=== PATIENT | male | born 1950 | race Caucasian/White ===

== ENCOUNTER → 2018-06-19 | Outpatient (CLI) | payer OTHER ==
[~2018-06-19] VITALS: Ht 177.8 cm; Wt 136.1 kg
[~2018-06-19] MED LIST: AMBIEN 5 MG TABL5 M1 PO; CRESTOR10 MG PO; FLECAINIDE ACET50 M1 PO; METFORMIN HCL500 MG PO; METOPROLOL SUCC50 MG PO; PACERONE 200 M200 MG PO; PRADAXA150 MG PO; PRINIVIL10 MG PO; SYNTHROID150 MCG PO
[2018-06-19 12:23] VITALS: BP 107/74
[2018-06-19 12:25] LABS: HEMATOCRIT 43.1 % (42.0-52.0); HEMOGLOBIN 14.6 gm/dL (14.0-18.0); MCH 30.2 pg (26.0-34.0); MCHC 33.8 g/dL (28.0-37.0); MCV 89.3 fL (80.0-100.0); RBC 4.83 mil/uL (4.50-6.00); RDW 13.6 % (10.5-14.5); WBC 6.2 thou/uL (4.0-11.0)
[2018-06-19 12:30] LABS: CALCIUM 9.4 mg/dL (8.5-10.1); CREATININE 1.1 mg/dL (0.7-1.3)
[2018-06-19 12:35] LABS: INR 1.2; PROTIME 12.4 Seconds (9.3-11.4)
[2018-06-19 12:36] LABS: ALBUMIN 3.8 g/dL (3.4-5.0); TOTAL BILIRUBIN 0.7 mg/dL (<0.1-1.0)
--- NOTE | 2018-06-19 20:16 | EKG ---
[place] [address] [facility] [place] [place] [address] ELECTROCARDIOGRAM REPORT Name: ADWOA STRANGE Room #: REG CL Paulo#: [id number] Admission: 06/19/18 Attend Phys: Reddy Root MD Discharge: Date of : 50 Report #: [id number] THIS REPORT FOR: //name// [facility] Test Date: 2018-06-19 Test Time: 13:58:43 Pat Name: ADWOA STRANGE Department: Room: Gender: Cloth Hauler: Lennox TIMMONS : 1950 Requested By: Reddy Root Order Number: [id number] MD: Reddy Root Measurements Intervals [place] Rate: 56 P: 5 WY: 265 QRS: -73 QRSD: 125 T: -13 QT: 455 QTc: 440 Interpretive Statements Sinus rhythm Prolonged [place] interval Nonspecific IVCD with LAD Inferior infarct, age indeterminate Consider anterior infarct Lateral leads are also involved Baseline wander in lead(s) V1 Compared to ECG 10/18/2015 10:13:06 First degree AV block now present Intraventricular conduction delay now present Atrial premature complex(es) no longer present Myocardial infarct finding still present Electronically Signed On 06-19-2018 20:16:46 WRITER by Reddy Root [email or web address] <ELECTRONICALLY SIGNED> By: Reddy Root MD 06/19/182015 1358 [id number] Reddy Root MD /EPI
== END | disposition home or self-care (01) ==
LOC: CATH 07:26
PROVIDERS: Internal Medicine Cardiovascular Disease
DX: I48.91 Unspecified atrial fibrillation (principal); Z91.013 Allergy to seafood; Z79.899 Other long term (current) drug therapy; Z79.01 Long term (current) use of anticoagulants

== ENCOUNTER → 2019-10-20 | Outpatient (CLI) | payer OTHER | LOC: SJCVCIMAG 13:55 | DX: I11.9 Hypertensive heart disease without heart failure (principal); I48.91 Unspecified atrial fibrillation; E78.2 Mixed hyperlipidemia; E11.9 Type 2 diabetes mellitus without complications; E78.5 Hyperlipidemia, unspecified; E66.09 Other obesity due to excess calories; Z68.35 Body mass index [BMI] 35.0-35.9, adult; Z79.84 Long term (current) use of oral hypoglycemic drugs; Z79.899 Other long term (current) drug therapy; Z82.49 Family history of ischemic heart disease and other diseases of the circulatory system ==

== ENCOUNTER → 2020-04-25 | Outpatient (CLI) | payer OTHER | LOC: SJCVC 11:41 | PROVIDERS: ATTEND Internal Medicine Cardiovascular Disease | DX: I10 Essential (primary) hypertension (principal); R94.31 Abnormal electrocardiogram [ECG] [EKG]; I44.0 Atrioventricular block, first degree; I48.91 Unspecified atrial fibrillation; E66.01 Morbid (severe) obesity due to excess calories; E11.9 Type 2 diabetes mellitus without complications; E78.5 Hyperlipidemia, unspecified; Z79.899 Other long term (current) drug therapy ==

== ENCOUNTER → 2020-09-26 | Outpatient (CLI) | payer OTHER | LOC: SJCVC 14:33 | PROVIDERS: ATTEND Internal Medicine Cardiovascular Disease | DX: R94.31 Abnormal electrocardiogram [ECG] [EKG] (principal); I44.0 Atrioventricular block, first degree; I48.91 Unspecified atrial fibrillation; E66.01 Morbid (severe) obesity due to excess calories; I10 Essential (primary) hypertension; E78.2 Mixed hyperlipidemia; E11.9 Type 2 diabetes mellitus without complications; G47.33 Obstructive sleep apnea (adult) (pediatric); Z79.84 Long term (current) use of oral hypoglycemic drugs; Z79.899 Other long term (current) drug therapy; Z88.8 Allergy status to other drugs, medicaments and biological substances; Z72.89 Other problems related to lifestyle ==

== ENCOUNTER → 2021-04-11 | Outpatient (CLI) | payer OTHER, MEDICARE | LOC: SJCVCIMAG 08:29 | PROVIDERS: ATTEND Internal Medicine Cardiovascular Disease | DX: R94.31 Abnormal electrocardiogram [ECG] [EKG] (principal); Z01.810 Encounter for preprocedural cardiovascular examination; I44.7 Left bundle-branch block, unspecified; I35.8 Other nonrheumatic aortic valve disorders; I44.4 Left anterior fascicular block; I44.0 Atrioventricular block, first degree; I48.91 Unspecified atrial fibrillation; I10 Essential (primary) hypertension; E78.2 Mixed hyperlipidemia; E66.09 Other obesity due to excess calories; E11.9 Type 2 diabetes mellitus without complications; E78.5 Hyperlipidemia, unspecified; E66.9 Obesity, unspecified; G47.33 Obstructive sleep apnea (adult) (pediatric); Z68.35 Body mass index [BMI] 35.0-35.9, adult; Z79.84 Long term (current) use of oral hypoglycemic drugs; Z79.899 Other long term (current) drug therapy; Z72.89 Other problems related to lifestyle ==